=== PATIENT | female | born 1945 | race Caucasian/White ===

== ENCOUNTER → 2017-12-10 | Outpatient (CLI) | payer MEDICARE ==
[2016-10-01 13:08] VITALS: BMI 32.2
[~2017-12-10] MED LIST: ALBU2.5V36 IH; AMLO-96 PO; ASP325 PO; ASPI-715 PO; ASPI-757 PO; ASPI81TA94 PO; ATOR40TA24 PO; ATOR40TA69 PO; ATR80PT PO; BACDS PO; CALC-18 PO; CARV12.578 PO; CLIN300C99 PO; CLOP75TA PO; DEXADRENE; DEXADRINE PO; EPIN0.3P15 IM; LEV500 PO; LEVO-85 PO; LISI-362 PO; LISI20TA29 PO; METO25TA23 PO; METO25TA93 PO; NIT100 PO; NIT4 SL; PEG15DRO5 OP; PHENA100 PO; PHENA200 PO; PRED20TA6 PO; SULF-170 PO; TOBR5DRO55 OS
--- NOTE | 2017-12-11 17:12 | RADIOLOGY IMAGING REPORT ---
FACILITY: [facility] PATIENT NAME: MARCIN PADILLA : [id number] MR: [id number] V: [id number] EXAM DATE: ORDERING PHYSICIAN: BARBARA GARNER TECHNOLOGIST: April Monroy EXAMINATION:TWO-DIMENSIONAL ECHOCARDIOGRAPH REASON: 2D Measurements (normal values in centimeters) LV endLV endRV endVent.LV PostAorticLeftPercent DiastolicSystolicDiastolicSeptumWallRootAtriumShortening (3.5-5.7)(0.9-2.6)(0.6-1.1)(0.6-1.1)(2.0-3.7)(1.9-4.0)(25-35%) STROKE VOLUME: ____ ESTIMATED EJECTION FRACTION:___% PARASTERNAL LONG AXIS: Overall left ventricular systolic function appears to be normal. There is mild, somewhat asymmetric left ventricular thickening more along the interventricular septum but no evidence for any outflow tract obstruction. Aortic valve is not well seen in this view but does appear to be somewhat stenotic. Right ventricle is borderline enlarged. A trace of mitral insufficiency is noted. PARASTERNAL SHORT AXIS: Overall left ventricular systolic function does appear to be normal. Aortic valve is not well seen but appears to be trileaflet in configuration. Trace of aortic insufficiency is noted. The valve does appear to be somewhat stenotic visually. Color examination of the pulmonic valve reveals a trace amount of pulmonic insufficiency. APICAL FOUR AND TWO CHAMBER: Normal left ventricular ejection fraction is noted. Aortic valve area was measured at 0.97 cm2 with mean pressure gradient across the valve of 22 mmHg and a dimensionless index of 0.4. Mitral valve area was measured within normal range at 2.7 cm2. Tricuspid regurgitation V-max is measured at 2.77 m/sec. Left atrial and right atrial volumes are measured within normal range at 25 and 16 mL/m2. Right ventricle appears to contract normally. The TAPSE measured at 1.7. SUBCOSTAL VIEW: No pericardial effusion was noted. Trace of mitral and tricuspid insufficiency is noted. No atrial septal or ventricular septal defects were appreciated. Doppler examination of the mitral valve in diastole does reveal the A wave greater than the E wave. IVC is normal in size. OVERALL IMPRESSION: 1. Normal left ventricular ejection fraction of 65% with a grade 1/4 decrease in diastolic function. 2. Borderline mild right ventricular enlargement with the other chamber sizes being normal. 3. There is some mild asymmetric left ventricular thickening more along the interventricular septum but no evidence for any outflow tract obstruction. 4. There is a trace amount of pulmonic, mitral and tricuspid insufficiency with estimated right ventricular systolic pressure within normal range at 34 mmHg. 5. A trileaflet aortic valve with moderate amount of aortic stenosis with a valve area of 0.97 cm2 with mean pressure gradient across the valve of 22 mmHg and a dimensionless index of 0.4 and there is a trace of aortic insufficiency present. 6. In comparison to the examination done on 01/20/15, the aortic valve area was approximately the same. The valve area was measured at 1.12 cm2 then with mean pressure gradient across the valve of 24 mmHg. No other changes were noted. Dictated by: Ruth Allen M.D. on 12/10/2017 at 18:50 Transcribed by: SHERRI on 12/11/2017 at 10:18 Approved by: Ruth Allen M.D. on 12/11/2017 at 17:11 [facility]
== END ==
LOC: US 01:02
PROVIDERS: ATTEND Internal Medicine Cardiovascular Disease
DX: I51.7 Cardiomegaly (principal); I35.2 Nonrheumatic aortic (valve) stenosis with insufficiency; I37.1 Nonrheumatic pulmonary valve insufficiency; I34.0 Nonrheumatic mitral (valve) insufficiency; I07.1 Rheumatic tricuspid insufficiency; I25.10 Atherosclerotic heart disease of native coronary artery without angina pectoris; I10 Essential (primary) hypertension; E78.00 Pure hypercholesterolemia, unspecified; Z98.61 Coronary angioplasty status; I35.0 Nonrheumatic aortic (valve) stenosis
CPT/HCPCS: 36415; 82040; 82247; 82310; 82374; 82435; 82465; 82565; 82947; 83718; 84075; 84132; 84155; 84295; 84450; 84460; 84478; 84520; 93306

== ENCOUNTER → 2018-03-18 | Outpatient (CLI) | payer MEDICARE ==
[2016-10-01 13:08] VITALS: BMI 32.2
== END ==
LOC: LAB 08:17
PROVIDERS: ATTEND Physician Assistant
DX: E78.2 Mixed hyperlipidemia (principal); R73.01 Impaired fasting glucose
CPT/HCPCS: 36415; 82040; 82247; 82310; 82374; 82435; 82465; 82565; 82947; 83036; 83718; 84075; 84132; 84155; 84295; 84450; 84460; 84478; 84520

== ENCOUNTER → 2018-05-22 | Outpatient (CLI) | payer MEDICARE ==
[2016-10-01 13:08] VITALS: BMI 32.2
--- NOTE | 2018-05-23 11:55 | RADIOLOGY IMAGING REPORT ---
FACILITY: [facility] [place] PATIENT NAME: MARCIN PADILLA : [id number] MR: [id number] V: [id number] EXAM DATE: [id number] ORDERING PHYSICIAN: MAXIMILIAN KUMAR TECHNOLOGIST: Linsey Emery PROCEDURE:BILATERAL DIGITAL SCREENING MAMMOGRAM WITH CAD ASSISTED INTERPRETATION & 3D TOMOSYNTHESIS COMPARISON:Prior mammograms 05/21/17, 04/28/16, 05/27/15, 06/24/14, 03/05/14, 07/17/13. INDICATIONS:screening FINDINGS: A small amount of fibroglandular tissue is seen throughout the breasts. The parenchymal pattern has remained stable allowing for difference in mammographic technique & patient positioning. There is no evidence of malignant appearing mass, malignant appearing calcifications or other secondary sign of malignancy in either breast. DIAGNOSTIC CATEGORY 1--NEGATIVE. RECOMMENDATIONS: ROUTINE MAMMOGRAM AND CLINICAL EVALUATION. IMPRESSION: BIRADS 1: Negative. No significant abnormality is seen. Dictated by: Xi Basurto M.D. on 05/22/2018 at 16:16 Transcribed by: JONNATHAN on 05/23/2018 at 8:17 Approved by: Xi Basurto M.D. on 05/23/2018 at 11:54 [facility]
== END ==
LOC: MAMO 01:28
PROVIDERS: ATTEND Physician Assistant
DX: Z12.31 Encounter for screening mammogram for malignant neoplasm of breast (principal)
CPT/HCPCS: 77063; 77067

== ENCOUNTER → 2018-07-31 | Outpatient (CLI) | payer MEDICARE ==
[2016-10-01 13:08] VITALS: BMI 32.2
[2018-07-31 11:51] LABS: PLATELET COUNT, AUTOMATED 216 K/uL (150-450)
== END ==
LOC: LAB 11:30
PROVIDERS: ATTEND Internal Medicine Cardiovascular Disease
DX: I35.0 Nonrheumatic aortic (valve) stenosis (principal); I25.10 Atherosclerotic heart disease of native coronary artery without angina pectoris
CPT/HCPCS: 36415; 82310; 82374; 82435; 82565; 82947; 84132; 84295; 84520; 85025

== ENCOUNTER 2018-08-28 18:56 | Emergency (ER) | payer MEDICARE, MEDICAID ==
[2016-10-01 13:08] VITALS: Wt 72.1 kg
[~2018-08-28 18:56] MED LIST changes: +AMLO-111 PO; -AMLO-96 PO
--- NOTE | 2018-08-28 19:02 | ER Report ---
History and Physical Time Seen By MD: 19:02 HPI/ROS CHIEF COMPLAINT: Urinary tract infection and vomiting HISTORY OF PRESENT ILLNESS: This is a 72-year-old female presents to the emergency department for concerns of a nausea, vomiting and urinary tract infection. Patient states that she was seen and evaluated by her primary care provider for a UTI on Sunday, started on cipro, then had a concern about a cellulitic infection to the RLE, then the antibiotic was changed to Bactrim, today she was started on Levaquin. The cellulitis is mildly better according to the patient. She's also been having nausea with vomiting for several days, "I think from the antibiotics". After a lengthy discussion she is here for nausea and vomiting. No diarrhea. No chest pain or shortness of breath. REVIEW OF SYSTEMS: Respiratory: No cough, no dyspnea. Cardiovascular: No chest pain, no palpitations. Gastrointestinal: As above. Musculoskeletal: No back pain. Integumentary: As above. Allergies: Coded Allergies: cephalexin (Verified Allergy, Mild, RASH, 08/28/18) Home Meds Active Scripts Promethazine Hcl (PROMETHAZINE HCL) 25 Mg Tablet, 25 MG PO Q8H, #12 TAB 0 Refills Prov:DVAID SINHA ASSISTANT COACH-BC 08/28/18 Nitroglycerin (NITROSTAT) 0.4 Mg Subl, 0.4 MG SL Q5MIN, #1 BOTTLE Prov:NOEMÍ PARMAR MD 10/01/16 Reported Medications Aspirin (ASPIRIN) 325 Mg Tablet, 3 TAB PO TID, TAB 07/26/17 Epinephrine (EPIPEN 2-GROVER) 0.3 Mg/0.3 Ml Pen.injctr, 0.3 MG IM 07/26/17 Peg 400/Hypromellose/Glycerin (EYE DROP TEARS) 15 Ml Drops, 15 ML OP PRN 07/26/17 Atorvastatin Calcium (ATORVASTATIN CALCIUM) 40 Mg Tablet, 1 TAB PO QDAY, TAB 07/26/17 Calcium Carbonate (CALCIUM) 500 Mg Tab.chew, 2 TABCHEW PO DAILY, TAB.CHEW 12/16/16 Discontinued Reported Medications Clopidogrel Bisulfate (CLOPIDOGREL) 75 Mg Tablet, 1 TAB PO QDAY, TAB 07/26/17 Discontinued Scripts Lisinopril (LISINOPRIL) 20 Mg Tablet, 20 MG PO QDAY, #30 TAB Prov:NOEMÍ PARMAR MD 10/01/16 Past Medical/Surgical History The patient has a past medical and surgical history of aortic stenosis, possible myocardial infarction, hypertension, hypercholesterolemia, GERD, occasional diarrhea, frequent urinary tract infections, arthritis, broken humerus, macular degeneration, cataracts, wears glasses, hard of hearing, gestational diabetes, hyperglycemia, depression, coronary artery stent. Reviewed Nurses Notes: Yes Hx Smoking: No Smoking Status: Never Smoker Exposure to Second Hand Smoke?: Yes (childhood) Hx Substance Use Disorder: No Hx Alcohol Use: No Constitutional Vital Sign - Last 24 Hours 08/28/18 08/28/18 08/28/18 08/28/18 19:02 19:03 19:06 19:11 Temp 98.0 Pulse 102 74 Resp 22 B/P (MAP) 194/84 194/84 (120) 165/75 (105) Pulse Ox 90 93 O2 Delivery Room Air 08/28/18 08/28/18 08/28/18 08/28/18 19:26 19:41 19:56 20:00 Pulse 74 76 72 B/P (MAP) 111/58 (75) Pulse Ox 92 90 90 08/28/18 08/28/18 08/28/18 20:11 20:30 21:00 Pulse 68 B/P (MAP) 133/75 (94) 145/65 (91) Pulse Ox 89 Physical Exam General Appearance: The patient is alert, has no immediate need for airway protection and no current signs of toxicity. Eyes: Pupils equal and round no injection. Respiratory: Chest is non tender, lungs are clear to auscultation. Cardiac: regular rate and rhythm. Gastrointestinal: Abdomen is soft and non tender, no masses, bowel sounds normal. Musculoskeletal: Neck: Neck is supple and non tender. Extremities have full range of motion and are non tender. Skin: Abrasion to the anterior RLE with surrounding erythema. DIFFERENTIAL DIAGNOSIS: After history and physical exam differential diagnosis was considered for gastroenteritis, colitis, cellulitis, fungal infection and chronic urinary tract infection. Medical Decision Making Data Points Result Diagram: 08/28/18191308/28/181913 Laboratory Hematology Test 08/28/18 19:00 08/28/18 19:14 Urine Color Yellow Urine Clarity Turbid Urine pH 5.0 pH (4.8-9.5) Urine Specific [place] 1.023 Urine Protein 30 mg/dL (NEGATIVE) Urine Glucose (UA) Negative mg/dL (NEGATIVE) Urine Ketones 20 mg/dL (NEGATIVE) Urine Blood Negative (NEGATIVE) Urine Nitrite Negative (NEGATIVE) Urine Bilirubin Negative (NEGATIVE) Urine Urobilinogen Negative mg/dL (0.2-1.9) Urine Leukocyte Esterase Small (NEGATIVE) Urine RBC 2 /HPF (0-2/HPF) Urine WBC 13 /HPF (0-5/HPF) Urine Squamous Epithelial Cells Many /LPF (</=FEW) Urine Transitional Epithelial Cells Many /LPF (NONE-FEW) Urine Uric Acid Crystals Many /HPF (NONE) Urine Bacteria Negative /HPF (NONE-FEW) Urine Hyaline Casts Few /LPF (NONE-FEW) Urine Mucus None /HPF (NONE-FEW) Red Blood Count 4.31 M/uL (4.17-5.56) Mean Corpuscular Volume 89.6 fL (80.0-96.0) Mean Corpuscular Hemoglobin 30.7 pg (26.0-33.0) Mean Corpuscular Hemoglobin Concent 34.3 g/dL (32.0-36.0) Red Cell Distribution Width 13.6 % (11.5-14.5) Mean Platelet Volume 11.1 fL (7.2-11.1) Neutrophils (%) (Auto) 68.5 % (39.4-72.5) Lymphocytes (%) (Auto) 25.3 % (17.6-49.6) Monocytes (%) (Auto) 5.7 % (4.1-12.4) Eosinophils (%) (Auto) 0.1 % (0.4-6.7) Basophils (%) (Auto) 0.4 % (0.3-1.4) Nucleated RBC Relative Count (auto) 0.0 /100WBC Neutrophils # (Auto) 4.9 K/uL (2.0-7.4) Lymphocytes # (Auto) 1.8 K/uL (1.3-3.6) Monocytes # (Auto) 0.4 K/uL (0.3-1.0) Eosinophils # (Auto) 0.0 K/uL (0.0-0.5) Basophils # (Auto) 0.0 K/uL (0.0-0.1) Nucleated RBC Absolute Count (auto) 0.00 K/uL Sodium Level 135 mmol/L (137-145) Potassium Level 4.7 mmol/L (3.5-5.0) Chloride Level 99 mmol/L (98-107) Carbon Dioxide Level 18 mmol/L (22-31) Blood Urea Nitrogen 35 mg/dl (7-18) Creatinine 2.50 mg/dl (0.52-1.04) Glomerular Filtration Rate Calc 18.9 Random Glucose 106 mg/dl (75-110) Calcium Level 9.3 mg/dl (8.4-10.2) Total Bilirubin 0.4 mg/dl (0.2-1.3) Aspartate Amino Transf (AST/SGOT) 47 U/L (0-35) Alanine Aminotransferase (ALT/SGPT) 36 U/L (0-56) Alkaline Phosphatase 60 U/L (0-126) Total Protein 8.1 g/dl (6.3-8.2) Albumin 4.6 g/dl (3.5-5.0) Chemistry Test 08/28/18 19:00 08/28/18 19:14 Urine Color Yellow Urine Clarity Turbid Urine pH 5.0 pH (4.8-9.5) Urine Specific [place] 1.023 Urine Protein 30 mg/dL (NEGATIVE) Urine Glucose (UA) Negative mg/dL (NEGATIVE) Urine Ketones 20 mg/dL (NEGATIVE) Urine Blood Negative (NEGATIVE) Urine Nitrite Negative (NEGATIVE) Urine Bilirubin Negative (NEGATIVE) Urine Urobilinogen Negative mg/dL (0.2-1.9) Urine Leukocyte Esterase Small (NEGATIVE) Urine RBC 2 /HPF (0-2/HPF) Urine WBC 13 /HPF (0-5/HPF) Urine Squamous Epithelial Cells Many /LPF (</=FEW) Urine Transitional Epithelial Cells Many /LPF (NONE-FEW) Urine Uric Acid Crystals Many /HPF (NONE) Urine Bacteria Negative /HPF (NONE-FEW) Urine Hyaline Casts Few /LPF (NONE-FEW) Urine Mucus None /HPF (NONE-FEW) White Blood Count 7.2 k/uL (4.5-11.0) Red Blood Count 4.31 M/uL (4.17-5.56) Hemoglobin 13.2 g/dL (12.0-16.0) Hematocrit 38.6 % (34.0-47.0) Mean Corpuscular Volume 89.6 fL (80.0-96.0) Mean Corpuscular Hemoglobin 30.7 pg (26.0-33.0) Mean Corpuscular Hemoglobin Concent 34.3 g/dL (32.0-36.0) Red Cell Distribution Width 13.6 % (11.5-14.5) Platelet Count 195 K/uL (150-450) Mean Platelet Volume 11.1 fL (7.2-11.1) Neutrophils (%) (Auto) 68.5 % (39.4-72.5) Lymphocytes (%) (Auto) 25.3 % (17.6-49.6) Monocytes (%) (Auto) 5.7 % (4.1-12.4) Eosinophils (%) (Auto) 0.1 % (0.4-6.7) Basophils (%) (Auto) 0.4 % (0.3-1.4) Nucleated RBC Relative Count (auto) 0.0 /100WBC Neutrophils # (Auto) 4.9 K/uL (2.0-7.4) Lymphocytes # (Auto) 1.8 K/uL (1.3-3.6) Monocytes # (Auto) 0.4 K/uL (0.3-1.0) Eosinophils # (Auto) 0.0 K/uL (0.0-0.5) Basophils # (Auto) 0.0 K/uL (0.0-0.1) Nucleated RBC Absolute Count (auto) 0.00 K/uL Glomerular Filtration Rate Calc 18.9 Calcium Level 9.3 mg/dl (8.4-10.2) Total Bilirubin 0.4 mg/dl (0.2-1.3) Aspartate Amino Transf (AST/SGOT) 47 U/L (0-35) Alanine Aminotransferase (ALT/SGPT) 36 U/L (0-56) Alkaline Phosphatase 60 U/L (0-126) Total Protein 8.1 g/dl (6.3-8.2) Albumin 4.6 g/dl (3.5-5.0) Urinalysis Test 08/28/18 19:00 Urine Color Yellow Urine Clarity Turbid Urine pH 5.0 pH (4.8-9.5) Urine Specific [place] 1.023 Urine Protein 30 mg/dL (NEGATIVE) Urine Glucose (UA) Negative mg/dL (NEGATIVE) Urine Ketones 20 mg/dL (NEGATIVE) Urine Blood Negative (NEGATIVE) Urine Nitrite Negative (NEGATIVE) Urine Bilirubin Negative (NEGATIVE) Urine Urobilinogen Negative mg/dL (0.2-1.9) Urine Leukocyte Esterase Small (NEGATIVE) Urine RBC 2 /HPF (0-2/HPF) Urine WBC 13 /HPF (0-5/HPF) Urine Squamous Epithelial Cells Many /LPF (</=FEW) Urine Transitional Epithelial Cells Many /LPF (NONE-FEW) Urine Uric Acid Crystals Many /HPF (NONE) Urine Bacteria Negative /HPF (NONE-FEW) Urine Hyaline Casts Few /LPF (NONE-FEW) Urine Mucus None /HPF (NONE-FEW) ED Course/Re-evaluation Clinical Indication for ER IV: Hydration, IV Access ED Course The patient was admitted to room. A history and physical were obtained. Differential diagnoses were considered. An IV was started. A CBC, CMP and UA were obtained. A 1 L normal saline bolus was given. 4 mg IV Zofran with some relief, patient continues to have some underlying nausea, total 0.5 mg IV Phenergan was given.BUN 35, creatinine 2.5, contaminated urine. Creatinine on previous visits were 1.2-1.4. This could be secondary to her hydration status however I'm concerned with her frequent urinary tract infections that this could be some other underlying renal issue and therefore I did recommend following up with urology. I will have her follow-up with her primary care provider in two days for reevaluation of the UTI as well as the improving cellulitic infection and repeat chemistry. The patient is aware of her renal function and agreeable to following up with her primary care provider as scheduled. Decision to Disposition Date: Aug 28, 2018 Decision to Disposition Time: 21:06 Depart Departure Latest Vital Signs Vital Signs Date Time Temp Pulse Resp B/P (MAP) Pulse Ox O2 Delivery O2 Flow Rate FiO2 08/28/18 21:00 145/65 (91) 08/28/18 20:11 68 89 08/28/18 19:02 98.0 22 Room Air Impression: Primary Impression: Dehydration Additional Impression: Elevated creatine kinase Condition: Improved Disposition: HOME OR SELF-CARE Referrals: MAXIMILIAN KUMAR PA-C (PCP) 2 Days New Scripts Promethazine Hcl (PROMETHAZINE HCL) 25 Mg Tablet 25 MG PO Q8H, #12 TAB 0 Refills Prov: DAVID SINHA Yazmin HAILE-BC 08/28/18 Patient Instructions: Acute Kidney Injury (GEN), Dehydration (ED) Additional Instructions: Be sure to keep your follow-up appointment as scheduled. Primary care provider in 2 days, have them reevaluate your urine as well as the improving infection on the right lower leg. I would also like them to repeat your chemistry looking specifically at the creatinine level. Be sure to drink plenty of fluids. Take the Phenergan as directed. Return to the ER for any other concerns or worsening symptoms. Problem Qualifiers DAVID SINHA ASSISTANT COACH-BC Aug 28, 2018 19:02
[2018-08-28] MEDS ORDERED: NS(*) 0.9% 1000 ML BAG 1,000 ML IV ONE (19:14)
[2018-08-28] MEDS ORDERED: ONDANSETRON 4 MG/2 ML VIAL IVP ONE (19:15)
[2018-08-28 19:29] LABS: PLATELET COUNT, AUTOMATED 195 K/uL (150-450)
[2018-08-28] MEDS ORDERED: PROMETHAZINE 25 MG/ML 1 ML AMP IVP ONE (20:35)
[2018-08-28] MEDS ORDERED: PROM-110 PO (20:49)
[2018-08-28] MEDS ORDERED: PROMETHAZINE HCL 25 MG TAB TH 2 TAB/BOTTLE PO ONE (20:50)
[2018-08-28 21:00] VITALS: BP 145/65
== END 2018-08-28 21:18 | disposition home or self-care (01) ==
LOC: ER 19:23
DX: E86.0 Dehydration (principal); R74.8 Abnormal levels of other serum enzymes; Z87.440 Personal history of urinary (tract) infections
CPT/HCPCS: 81001; 85025; 96374; 96375; 99284; J2405; J2550; J7030; 82040; 82247; 82310; 82374; 82435; 82565; 82947; 84075; 84132; 84155; 84295; 84450; 84460; 84520

== ENCOUNTER → 2018-11-27 | Outpatient (CLI) | payer MEDICARE, MEDICAID ==
[2016-10-01 13:08] VITALS: BMI 32.2
[~2018-11-27] MED LIST changes: +PROM-110 PO
--- NOTE | 2018-11-27 13:06 | RADIOLOGY IMAGING REPORT ---
FACILITY: [facility] [place] PATIENT NAME: Tabatha Jenkins : 1945 MR: [id number] V: [id number] EXAM DATE: ORDERING PHYSICIAN: MAXIMILIAN KUMAR TECHNOLOGIST: Location: Patient: Tabatha Jenkins : 1945 Visit/Account:[id number] Date of Sevice: 11/27/2018 DEXA Scan HISTORY: Osteoporosis screening. COMPARISON: 11/02/2016. LUMBAR SPINE: The bone mineral density (BMD) measured from L1-L4 correlates with a Z-score -1.3 and a T-score of - 2.6 which is osteoporosis as defined by the World Health Organization. The corresponding risk of fra cture in the lumbar spine is increased compared with a young adult reference population. This value has decreased by 1.4 % since the prior study. More than 5% change is considered significant. HIP: Bone mineral density (BMD) measured in the left total hip region correlates with a Z-score -2.7 and a T-score of -2 which is osteopenia as defined by the World Health Organization. The corresponding ri sk of fracture in the hip is increased compared with a young adult reference population. This value h as decreased by 0.9 % since the prior study. More than 5% change is considered significant. Bone mineral density (BMD) measured in the Femoral Neck region measures 0.710 g/cm2 which is in the o steopenia range. IMPRESSION: 1. Lumbar spine: Osteoporosis. No significant change 2. Left Total Hip: Osteopenia. No significant change 3. Femoral Neck: Bone Mineral Density is 0.710 g/cm2 is in the osteopenia range The next DEXA scan of this patient should include the following sites: L1-L4 and the left hip. FRAX? WHO Fracture Risk Assessment Tool link: <http://www.shef.ac.uk/FRAX/tool.jsp?locationValue=9> PLEASE NOTE: 1) The World Health Organization defines low BMD as follows: T-score Normal > -1 Osteopenia < -1 and > -2.5 Osteoporosis < -2.5 without fractures Established osteoporosis < -2.5 with fractures 2) In general, you may wish to consider: Diagnosis Treatment Follow-up DEXA Normal BMD Prevention 2-3 years Osteopenia Prevention/therapy 1-2 years Osteoporosis Therapy Yearly 3) Fracture risk estimated from the T-score is more accurate for vertebral fractures (often spontane ous) than for hip fractures. Report Dictated By: Keven Young MD at 11/27/2018 12:59 PM Report E-Signed By: Keven Young MD at 11/27/2018 1:02 PM WSN:[id number]
== END ==
LOC: RAD 12:16
PROVIDERS: ATTEND Physician Assistant
DX: M81.0 Age-related osteoporosis without current pathological fracture (principal); M85.80 Other specified disorders of bone density and structure, unspecified site; Z78.0 Asymptomatic menopausal state
CPT/HCPCS: 77080

== ENCOUNTER → 2019-03-26 | Outpatient (CLI) | payer MEDICARE, MEDICAID ==
[2016-10-01 13:08] VITALS: BMI 32.2
[~2019-03-26] MED LIST changes: -AMLO-111 PO; +AMLO-125 PO
== END ==
LOC: LAB 09:08
PROVIDERS: ATTEND Internal Medicine Cardiovascular Disease
DX: I25.10 Atherosclerotic heart disease of native coronary artery without angina pectoris (principal); I10 Essential (primary) hypertension; I35.0 Nonrheumatic aortic (valve) stenosis
CPT/HCPCS: 36415; 82465; 83718; 84478

== ENCOUNTER → 2019-05-22 | Outpatient (REF) | payer MEDICARE, MEDICAID ==
[2016-10-01 13:08] VITALS: BMI 32.2
== END ==
LOC: ZZSENDIN 15:55
PROVIDERS: ATTEND Physician Assistant
DX: I50.9 Heart failure, unspecified (principal)
CPT/HCPCS: 83880

== ENCOUNTER → 2019-06-12 | Outpatient (CLI) | payer MEDICARE, MEDICAID ==
[2016-10-01 13:08] VITALS: BMI 32.2
== END ==
LOC: US 01:30
PROVIDERS: ATTEND Physician Assistant
DX: I35.0 Nonrheumatic aortic (valve) stenosis (principal); I51.7 Cardiomegaly
CPT/HCPCS: 93306